=== PATIENT | male | born 1995 | race Caucasian/White ===

== ENCOUNTER 2017-10-05 06:37 | Day surgery (SDC) | payer BC ==
[2017-10-05] MEDS ORDERED: Sodium Chloride 0.9% 1,000 ML IV SCH (07:00)
[2017-10-05] MEDS ORDERED: Propofol 200 MG/20 ML SDV ONE (07:46)
[2017-10-05] MEDS ORDERED: Midazolam 1 MG/ML 2 ML SDV ONE (07:46)
[2017-10-05] MEDS ORDERED: fentaNYL 100 MCG/2 ML SDV ONE (07:46)
--- NOTE | 2017-10-05 11:51 | OR ---
DATE OF PROCEDURE: 10/05/2017 PROCEDURE PERFORMED: 1. EGD. 2. Leblanc placement, wireless pH monitoring. COMPLICATION: None. ROOM SERVICE BELLHOP: None. ANESTHETIC: MAC. PREOPERATIVE DIAGNOSIS: Epigastric pain, concern for esophageal reflux disease. POSTOPERATIVE DIAGNOSIS: Epigastric pain, concern for esophageal reflux disease. RISKS: Risks, benefits, alternatives, and limitations including, but not limited to infection, bleeding, and perforation were explained to the patient and he wished to proceed. PROCEDURE IN DETAIL: The patient was placed in left lateral decubitus position. The EGD scope was introduced and advanced atraumatically into the second part of the duodenum. The patient had very mild duodenitis, probably even artifactual. No active duodenitis or ulceration. No gastritis or ulceration. Retroflex, there was no hiatal hernia. The GE junction showed possible evidence of inflammation. The esophagus was normal. The GE junction was measured at 37 cm. The Leblanc pH was then introduced and placed at 31 cm. This was then clipped into place using the standard technique of placement verification, applying suction for 30 seconds deployment, removal and then reinspection of the EGD scope. This was noted to be intact with mucosa noted to be in the pin. The procedure was then terminated. The patient tolerated the procedure well. Marshal Hubbard MD /[id number]
== END 2017-10-05 09:25 | disposition home or self-care (01) ==
LOC: JP.SDS 06:37
PROVIDERS: ATTEND Surgery
DX: R10.13 Epigastric pain (principal); J45.909 Unspecified asthma, uncomplicated
CPT/HCPCS: 43235; J2250; J2704; J3010; J7030